=== PATIENT | female | born 1985 | race Caucasian/White ===

== ENCOUNTER 2020-11-09 14:48 | Outpatient (CLI) | payer OTHER, SELFPAY ==
--- NOTE | ~2020-11-09 | US_ITS ---
EXAMINATION: US thyroid DATE: 11/09/2020 15:06 INDICATION: Goiter. TECHNIQUE: Multiple ultrasound images of the thyroid were obtained. COMPARISON: None. FINDINGS: The right thyroid lobe measures 5.1 x 1.8 x 1.4 cm. The left thyroid lobe measures 4.4 x 1.4 x 1.5 c m. Thyroid vascularity is normal. There is a 3 mm nodule in right thyroid lobe. There is a 4 mm nodul e in left thyroid lobe. IMPRESSION: 1. Small thyroid nodules, likely not clinically significant. No follow-up is needed. Reviewed, dictated and finalized at location A. IMPRESSION: 1. Small thyroid nodules, likely not clinically significant. No follow-up is ne eded.
== END 2020-11-09 14:49 ==
PROVIDERS: PCP Nurse Practitioner Family; Visit Provider Nurse Practitioner Family
DX: E04.9 Nontoxic goiter, unspecified (principal)
CPT/HCPCS: 76536

== ENCOUNTER 2021-02-08 14:02 | Outpatient (CLI) | payer OTHER, SELFPAY ==
--- NOTE | ~2021-02-08 | US_ITS ---
EXAMINATION: US pelvic complete w TV EXAM DATE: 02/08/2021 14:38 INDICATION: Pelvic and perineal pain 6-7 months. TECHNIQUE: Pelvic transabdominal and transvaginal sonogram was performed. There are multiple graysca le and Doppler images available for interpretation. Comparison is made to prior examination from 04/28. FINDINGS: Uterus measures 9.0 x 2.9 x 3.6 cm, and is morphologically normal. Endometrial stripe katherine sures 7 mm, within normal limits. There is a nabothian cyst. There is no free pelvic fluid. Right adnexa: The ovary measures 2.9 x 2.2 x 3.0 cm and is morphologically normal. Ovarian vascular f low confirmed. Left adnexa: The ovary measures 2.4 x 1.1 x 1.4 cm and is morphologically normal. Ovarian vascular fl ow confirmed. IMPRESSION: 1. Unremarkable pelvic ultrasound exam. Reviewed, dictated and finalized at location A.
== END 2021-02-08 14:03 ==
PROVIDERS: PCP Nurse Practitioner Family; Visit Provider Nurse Practitioner
DX: R10.2 Pelvic and perineal pain (principal)
CPT/HCPCS: 76830; 76856

== ENCOUNTER 2021-02-13 12:15 | Emergency (ER) | payer OTHER, SELFPAY ==
[2021-02-13 12:25] VITALS: BP 130/91; PULSE 74; RESP 20; TEMP 36.1; O2SAT 98
--- NOTE | 2021-02-13 12:25 | ED.GENADULT ---
HPI - General Adult General Chief complaint: Upper Respiratory Infection Stated complaint: Sore throat,headache Time Seen by Provider: 02/13/21 12:26 Source: patient and RN notes reviewed Mode of arrival: ambulatory Limitations: no limitations History of Present Illness HPI narrative: 35-year-old female presents with complaints of upper respiratory infection, sneezing, some facial congestion, facial pressure, ear pressure, and intermittent headache (not the worst of her life) for the past 3 days. Milena reports awakening this morning with a sore throat. ?Neti pot for the last 3 nights and Ibuprofen, last took 09:00 AM without relief. ?Milena feels as if LT side of face is swollen. ?Intermittent cough. ?Nasal congestion and rhinorrhea. ?No high fevers, drooling, neck or throat swelling. ?No voice change. ?No nausea, vomiting, or abdominal pain. ?Tolerating liquids well. ?Denies chills, dyspnea, difficulty swallowing, foreign body sensation, and rash. No chest pain or shortness of breath. ?Remains active. ?The patient reports she has not been diagnosed with COVID-19. ?The patient reports she received 2 [employer] COVID-19 vaccines. ?The patient reports she is not waiting for the results of a COVID-19 lab test. ?The patient reports she does not have weakness, fatigue, or myalgia. ?The patient reports she does not have a worsening cough or shortness of breath. ?The patient reports she does not have any loss of taste and diarrhea. ?Denies recent traveling. ?Denies concerns for COVID-19 or exposures. ?At this time, the patient is not suspected of having COVID-19. Some parts of this dictation were generated by voice recognition software and may contain typographical and/or grammatical inaccuracies. Related Data Allergies Allergy/AdvReac Type Severity Reaction Status Date / Time aspirin Allergy Severe Anaphylactic Verified 02/13/21 12:36 Shock Sulfa (Sulfonamide Allergy Severe Anaphylactic Verified 02/13/21 12:36 Antibiotics) Shock sulfamethoxazole Allergy Severe Anaphylactic Verified 02/13/21 12:36 Shock Review of Systems Review of Systems: Narrative: CONSTITUTIONAL: Denies fever, chills, sweats. EYES: Denies visual changes, redness, discharge. ENT: Complains of sore throat, congestion, rhinorrhea, bilateral otalgia. CARDIOVASCULAR: Denies chest pain, palpitations, edema. RESPIRATORY: Denies dyspnea, wheezing. Complaints of intermittent cough. GASTROINTESTINAL: Denies abdominal pain, nausea, vomiting, diarrhea. GENITOURINARY: Denies dysuria, hematuria, abnormal discharge. SKIN: Denies rash or itching. MUSCULOSKELETAL: Denies acute back pain, joint pain, or myalgia. NEUROLOGIC: Denies numbness or focal weakness. Complaints of TABOR. PSYCHIATRIC: Denies anxiety or depression. All systems reviewed & are unremarkable except as noted in HPI and below. [facility] Past Medical History Medical History (Updated 02/13/21 @ 13:00 by DANETTE Gonzalez) Asthma Childhood delivery delivered Ex-smoker for less than 1 year Obese Surgical History Surgical History (Updated 02/13/21 @ 12:56 by DANETTE Gonzalez) H/O section X3 H/O LEEP History of cholecystectomy History of endometrial ablation History of tonsillectomy History of tubal ligation Family History Family History Mother Hypertension Family history of elevated blood lipids Family history of diabetes mellitus in first degree relative Family history of pulmonary embolism Grandparent Family history of malignant neoplasm of breast, Onset Age: 92 Family history of coronary artery disease, Onset Age: 57 Diabetes mellitus Social History Social History (Updated 02/13/21 @ 12:57 by DANETTE Gonzalez) Smoking status: Former smoker Tobacco type: cigarettes and e-cigarettes/vaping Second hand tobacco smoke exposure: Yes (Spouse) Alcohol intake: current Substance use: never
[2021-02-13 12:53] VITALS: BP 137/89; PULSE 69
[2021-02-13 12:54] VITALS: BP 128/90; BP 132/98; PULSE 69; PULSE 79
== END 2021-02-13 13:08 | disposition home or self-care (01) ==
PROVIDERS: Emergency Provider Nurse Practitioner Family; PCP Nurse Practitioner Family
DX: J01.90 Acute sinusitis, unspecified (principal); H92.01 Otalgia, right ear; Z87.891 Personal history of nicotine dependence; E66.9 Obesity, unspecified; Z68.41 Body mass index [BMI] 40.0-44.9, adult
CPT/HCPCS: 99213; G0463

== ENCOUNTER 2021-03-07 10:10 | Emergency (ER) | payer OTHER, SELFPAY ==
--- NOTE | ~2021-03-07 | CT_ITS ---
EXAMINATION: CT soft tissue neck w con DATE: 03/07/2021 13:57 INDICATION: Right submandibular swelling TECHNIQUE: Computed tomography (CT) of the neck was performed with 75 mL Omnipaque-350 intravenous co ntrast. The dose-length product was 413.12 mGy-cm. Automated exposure control and iterative reconstru ction technique were employed. COMPARISON: No prior studies for comparison. FINDINGS: Lung apices are normal. Thyroid gland is normal. No significant vascular abnormality. Intra cranial contents are normal. Mucosal and parapharyngeal spaces are symmetric. There is asymmetric enl argement of the right parotid gland with heterogeneous enhancement and mild surrounding fatty infiltr ation, particularly inferiorly. Mildly enlarged internal jugular lymph nodes are likely reactive. The paranasal sinuses and mastoids are pneumatized. Study limited by motion. IMPRESSION: 1. Mild asymmetric enlargement of the right parotid gland with heterogeneous enhancement, consistent with mild sialadenitis. Reviewed, dictated and finalized at location A. IMPRESSION: 1. Mild asymmetric enlargement of the right parotid gland with heterogeneous en hancement, consistent with mild sialadenitis.
[2021-03-07 11:33] VITALS: BP 179/99; PULSE 86; RESP 14; TEMP 36.2; O2SAT 100
--- NOTE | 2021-03-07 13:00 | ED.GENADULT ---
HPI - General Adult General Chief complaint: Unspecified Stated complaint: Hard mass on right side of face Time Seen by Provider: 03/07/21 12:50 Source: patient Mode of arrival: ambulatory Limitations: no limitations History of Present Illness HPI narrative: This is a 35 year old female that presents to the ER for right sided facial swelling noted this morning. Reports pain and swelling to an area just below the right jaw. Denies fever, sore throat, dentalgia or otalgia. Related Data Allergies Allergy/AdvReac Type Severity Reaction Status Date / Time aspirin Allergy Severe Anaphylactic Verified 03/07/21 11:42 Shock Sulfa (Sulfonamide Allergy Severe Anaphylactic Verified 03/07/21 11:42 Antibiotics) Shock sulfamethoxazole Allergy Severe Anaphylactic Verified 03/07/21 11:42 Shock Review of Systems Review of Systems: CONSTITUTIONAL: Denies fever ENT: Denies sore throat, or otalgia. All systems reviewed & are unremarkable except as noted in HPI and below PMFSH Past Medical History Medical History (Updated 03/07/21 @ 14:55 by Analisa Jonas PA-C) Asthma Childhood delivery delivered Ex-smoker for less than 1 year Obese Surgical History Surgical History (Updated 02/13/21 @ 12:56 by DANETTE Gonzalez) H/O section X3 H/O LEEP History of cholecystectomy History of endometrial ablation History of tonsillectomy History of tubal ligation Family History Family History Mother Hypertension Family history of elevated blood lipids Family history of diabetes mellitus in first degree relative Family history of pulmonary embolism Grandparent Family history of malignant neoplasm of breast, Onset Age: 92 Family history of coronary artery disease, Onset Age: 57 Diabetes mellitus Social History Social History (Updated 02/13/21 @ 12:57 by DANETTE Gonzalez) Smoking status: Former smoker Tobacco type: cigarettes and e-cigarettes/vaping Second hand tobacco smoke exposure: Yes (Spouse) Alcohol intake: current Substance use: never Substance use type: does not use Gender identity (if verbalized by the patient): Female Exam Narrative: GENERAL: Well-appearing, well-nourished, and in no acute distress. HEAD: Normocephalic, atraumatic. EYES: EOMI. ENT: Nares clear, no rhinorrhea or epistaxis. Mucous membranes moist. Oropharynx without tonsillar hypertrophy exudate or other lesions. Bilateral TMs pearly granados non-bulging NECK: Supple. Swelling and pain over the right submandibular region CHEST: Clear to auscultation. No respiratory distress. No wheezes rales or rhonchi HEART: Regular rate and rhythm. No murmur heard. Normal peripheral pulses. EXTREMITIES: Normal range of motion. No edema. SKIN: Warm, dry, no rash. NEURO: No focal deficits. Alert and oriented x3. PSYCH: Normal mood and affect Course Vital Signs Vital signs: Vital Signs Temperature 97.1 F L 03/07/21 11:33 Pulse Rate 86 03/07/21 11:33 Respiratory Rate 14 03/07/21 11:33 Blood Pressure 179/99 H 03/07/21 11:33 Pulse Oximetry 100 03/07/21 11:33 Temperature 97.1 F L 03/07/21 11:33 Pulse Rate 86 03/07/21 11:33 Respiratory Rate 14 03/07/21 11:33 Blood Pressure 179/99 H 03/07/21 11:33 Pulse Oximetry 100 03/07/21 11:33 Medical Decision Making MDM Narrative Medical decision making narrative: Patient presents to the ER for swelling of the right submandibular region. She is afebrile and nontoxic-appearing. CBC and metabolic panel without concerning findings. Inflammatory markers are not elevated. Bedside test is negative. CT soft tissue neck shows mild asymmetric enlargement of the right parotid gland with heterogenous enhancement, consistent with sialadenitis. Patient was instructed on care of this. She is to follow-up with her primary care doctor. She was given warnings to return to the ER Pat
[2021-03-07 13:09] LABS: Basophils Absolute Auto 0.1 K/mm3 (0.0-0.1); Eosinophils Absolute Auto 0.3 K/mm3 (0-0.3); Eosinophils Percent Auto 3.4 % (0-4.4); Hematocrit 45.5 % (37.0-47.0); Hemoglobin 15.3 g/dL (12.0-15.0); Immature Granulocyte Absolute 0.02 K/mm3 (0.00-0.031); Immature Granulocyte Percent A 0.3 % (0-0.5); Lymphocytes Absolute Auto 2.11 K/mm3 (0.9-3.2); Lymphocytes Percent Auto 26.7 % (18.3-44.2); Mean Corpuscular HGB Conc 33.6 g/dl (32-36); Mean Corpuscular Hemoglobin 29.9 pg (26-34); Mean Platelet Volume 10.6 fl (7.4-10.4); Monocytes Absolute Auto 0.4 K/mm3 (0.1-0.6); Monocytes Percent Auto 5.3 % (2.6-8.5); Neutrophils Percent Auto 63.3 % (45.5-73.1); Platelet Count Result 225 k/mm3 (150-375); Red Blood Count 5.11 M/mm3 (4.2-5.4); White Blood Count 7.9 K/mm3 (4.5-10.0)
[2021-03-07 13:19] LABS: Anion Gap 8 mmol/L (8-16); Blood Urea Nitrogen 11 mg/dL (7-17); Calcium 9.3 mg/dL (8.4-10.2); Carbon Dioxide 24 mmol/L (22-30); Chloride 107 mmol/L (98-107); Estimated CRCL calculation 95 ml/min; Estimated Glomerular Filt Rate > 60; Glucose 96 mg/dL (65-110); Potassium 4.2 mmol/L (3.4-5.0); Sodium 139 mmol/L (137-145)
--- NOTE | 2021-03-07 13:32 | PC.NURSE ---
evelio called labBrenda, added on ESR and CRP
[2021-03-07 13:46] LABS: CRP 0.6 mg/dL (<1.0)
[2021-03-07 14:12] LABS: Erythrocyte Sedimentation Rate 14 mm/hr (0-20)
[2021-03-07 15:38] VITALS: BP 141/91; PULSE 67; RESP 16; O2SAT 100
== END 2021-03-07 15:51 | disposition home or self-care (01) ==
PROVIDERS: Physician Assistant; Emergency Provider Emergency Medicine; PCP Nurse Practitioner Family
DX: K11.20 Sialoadenitis, unspecified (principal); J45.909 Unspecified asthma, uncomplicated; Z87.891 Personal history of nicotine dependence; E66.9 Obesity, unspecified; Z68.39 Body mass index [BMI] 39.0-39.9, adult
CPT/HCPCS: 36415; 70491; 80048; 81025; 85025; 85652; 86140; 99284; Q9967

== ENCOUNTER 2024-09-03 08:37 | Outpatient (CLI) | payer OTHER, SELFPAY ==
--- NOTE | ~2024-09-03 | US_ITS ---
EXAMINATION: US thyroid DATE: 09/03/2024 08:58 INDICATION: Unspecified thyroid disorder TECHNIQUE: Multiple ultrasound images of the thyroid were obtained. COMPARISON: None. FINDINGS: The right thyroid lobe measures 5.1 x 1.6 x 1.8 cm. The left thyroid lobe measures 4.8 x 1.5 x 2.0 c m. Couple benign 4 mm anechoic TI RADS 1 cystic nodules in the right thyroid lobe. No solid nodules. There is normal echotexture, echogenicity and vascular flow throughout the thyroid gland. IMPRESSION: 1. A couple unchanged benign 4 mm TI-RADS 1 cystic nodules in the right thyroid lobe. Otherwise [place] l thyroid ultrasound. Reviewed, dictated and finalized at location A. R LAYER TILE IMPRESSION: 1. A couple unchanged benign 4 mm TI-RADS 1 cystic nodules in the right thyroid lobe. Otherwise normal thyroid ultrasound.
== END 2024-09-03 08:38 | disposition home or self-care (01) ==
LOC: MICIMG 08:38
PROVIDERS: PCP Nurse Practitioner; Visit Provider Nurse Practitioner
DX: E04.2 Nontoxic multinodular goiter (principal)
CPT/HCPCS: 76536

== ENCOUNTER 2024-09-03 12:31 | Emergency (ER) | payer OTHER, SELFPAY ==
--- OUTSIDE RECORDS SUMMARY | 2024-09-03 12:33 | XMS_ITS | Clinical Summary ---
Author Organization [facility] Address [address] [place] [address]. [place] [address] [place] [address] Care Team Providers Care Kiln Stacker Name Role Phone Preeti Verduzco NP Primary Care Provider [phone] Allergies Active Allergy Reactions Criticality Noted Date Comments Aspirin Unknown 07/25/2017 Sulfa Antibiotics Anaphylaxis High 07/25/2017 Medications tirzepatide (ZEPBOUND) 2.5 MG/0.5ML injectionIndica tions:Weight Loss Inject 2.5 mg into the skin once a week. Indications : Weight Loss 3 mL 4 Active varenicline, starter pack, (CHANTIX) 0.5 MG X 11 & 1 MG X 42 tabletIndicatio ns:Cigarette smoker Take one 0.5 mg tab by mouth once a day for 3 days, then take one 0.5 mg tab twice a day for 4 days, then take one 1 mg tab twice a day. 53 each 4 Active famotidine (PEPCID) 20 MG tabletIndicatio ns:Facial swelling Take 1 tablet (20 mg total) by mouth 2 (two) times daily. 20 tablet 4 Active predniSONE (DELTASONE) 20 MG tabletIndicatio ns:Facial swelling Take 40mg for three days Take 20mg for three days Take 10mg for three days Then stop. 11 tablet 4 Active buPROPion XL (WELLBUTRIN XL) 150 MG 24 hr tabletIndicatio ns:Anxiety and depression Take 1 tablet (150 mg total) by mouth daily. 90 tablet 1 4 Active hydrOXYzine (ATARAX) 10 MG tabletIndicatio ns:Insomnia, unspecified type,Generalize d anxiety disorder TAKE 1 TABLET(10 MG) BY MOUTH EVERY NIGHT NEEDED FOR ANXIETY OR SLEEP 30 tablet 5 Active hydrOXYzine (ATARAX) 10 MG tabletIndicatio ns:Insomnia, unspecified type,Generalize d anxiety disorder Take 1 tablet (10 mg total) by mouth nightly as needed for Anxiety (and sleep). 30 tablet 4 025 Discontinued Active Problems Problem Noted Date Diagnosed Date Cigarette smoker 09/18/2023 Anxiety and depression 09/18/2023 AB (generalized anxiety disorder) 03/26/2019 Class 2 obesity due to exces s calories without serious comorbidity with body mass index (BMI) of 39.0 to 39.9 in adult 03/26/2019 Moderate episode of recurren t major depressive disorder ([facility]) 03/26/2019 History of HPV infection 03/26/2019 Encounters Date Type Department Care Team Description 09/03/2024 Telephone [facility] Family Medicine - [place] [address] [address] Preeti Verduzco NP Information from Last 3 Months Immunizations Name Administration Dates Next Due Hepatitis B Pediatric 03/09/1999 Influenza (Generic) 04/26/2021 Influenza Adult (Generic) 04/26/2023,04/22/2022, 05/07/2016 Td 03/09/1999 Tdap (Generic) 07/31/2017,03/10/2016,09/23/2014 Family History Medical History Relation Comments Drug Abuse Brother Alcohol Abuse Father COPD Father Drug Abuse Father Diabetes Mother Hypertension Mother Lupus Mother Drug Abuse Sister Stroke Son Relation Status Comments Brother Father Alive Mother Alive Sister Son Social History Tobacco Use Types Packs/Day Years Used Date Smoking Tobacco: Some Days Cigarettes 0.3 15 Passive Smoke Exposure: Current Smokeless Tobacco: Never Tobacco Cessation:Ready to Q uit: No; Counseling Given: Yes Alcohol Use Standard Drinks/Week Comments Yes 10 (1 standard drink = 0.6 oz pu re alcohol) social PHQ-2 Answer Date Recorded Patient Health Questionnaire-2 Score 2 01/16/2024 Comments No Sex and Gender Information Value Date Recorded Sex Assigned at Not on file Legal Sex Female 8:27 PM CDT Gender Identity Not on file Sexual Orientation Not on file Last Filed Vital Signs Vital Sign Reading Time Taken Comments Blood Pressure 136/82 01/16/2024 12:49 PM CDT Pulse 74 01/16/2024 12:49 PM CDT Temperature 36.4 ??C (97.5 ??F) 01/16/2024 12:49 PM C DT Respiratory Rate 17 01/16/2024 12:49 PM CDT Oxygen Saturation 99% 01/16/2024 12:49 PM CDT Inhaled Oxygen Concentration - - Weight 99.5 kg (219 lb 6.4 oz) 01/16/2024 12:49 PM CDT Height 160 cm (5' 3 ) 01/16/2024 12:49 PM CDT Body Mass Index 38.86 01/16/2024 12:49 PM CDT Plan of Treatment Health Maintenance Due Date Last Done Comments Cervical Cancer Screening Pap Smear (Age 30 to 64) Every 3 Years 1984 Pneumococcal Vaccine: Pediatrics (0 to 5 Years) and At-Risk Patients (6 to 64 Years) (1 of 2 - PCV) 1990 Hepatitis B Vaccines (2 of 3 - 3-dose series) 04/06/1999 03/09/1999 Cervical Cancer Screening Pap with HPV Testing (Age 30 to 64) Every 5 Years 2014 Cervical Cancer Screening with HPV 2014 COVID-19 Vaccine ( season) 2024 08/25/2021, 08/17/2020, 07/29/2020 Influenza Adult (#1) 2024 04/26/2023, 04/22/2022, 04/26/2021, Additional history exists Mammogram Screening 2024 PHQ-2 (Physician [place]) 07/31/2024 01/16/2024 Annual Physical 09/18/2024 09/18/2023 DTaP, Tdap and Td Vaccines (5 - Td or Tdap) 07/31/2027 07/31/2017, 03/10/2016, 09/23/2014, Additional history exists Hepatitis C Completed 09/18/2023 HPV Vaccines Aged Out No longer eligi ble based on patient's age to complete this topic Meningococcal B Vaccine Aged Out No l onger eligible based on patient's age to complete this topic Meningococcal Vaccine Aged Out No bairon nicola eligible based on patient's age to complete this topic RSV Immunizations Under 20 Months Aged Out No longer eligible based on patient's age to complete this topic Procedures Procedure Name Priority Date/Time Associated Diagnosis Comments HEPATITIS C ANTIBODY Routine 09/18/2023 12:47 PM HOG OPERATOR Need for hepatitis C screening test from Last 3 Months or Most Recently Relevant to Health Maintenance Results * HEPATITIS C ANTIBODY (09/18/2023 12:47 PM HOG OPERATOR) HEPATITIS C AB NON-REACTI VE NON-REACT JIMMY 09/18/2023 7:10 PM HOG OPERATOR [facility] Comment: ANTIBODIES TO HCV NOT DETECTED. DOES NOT EXCLUDE THE POSSIBILITY OF EXPOSURE TO HCV. 09/18/2023 12:4 7 PM HOG OPERATOR Preeti Verduzco NP LABORATORY Final Res ult [facility] [address] [place] [address], [phone] from Last 3 Months or Most Recently Relevant to Health Maintenance Insurance [employer] Care Teams Kiln Stacker Relationship Specialty Start Date End Date Preeti Verduzco NP [address] [place] [address] PCP - General NURSE PRACTITIONER 03/18/20
--- OUTSIDE RECORDS SUMMARY | 2024-09-03 12:33 | XMS_ITS | Encounter Summary ---
Author Organization [facility] Address [address] [place] [address]. [place] [address] [place] [address] Care Team Providers Care Infant Babysitter Name Role Phone Preeti Verduzco PAINT CREW SUPERVISOR Primary Care Provider [phone] Reason for Visit * Reason Onset Date Comments Information 09/03/2024 Encounter Details Date Type Department Care Team (Late st Contact Info) Description 09/03/2024 Telephone [facility] Family Medicine [facility] [address] [facility] [address] [place] [phone] Preeti Verduzco, PAINT CREW SUPERVISOR [address] [id number] Information Social History Tobacco Use Types Packs/Day Years Used Date Smoking Tobacco: Some Days Cigarettes 0.3 15 Passive Smoke Exposure: Current Smokeless Tobacco: Never Alcohol Use Standard Drinks/Week Comments Yes 10 (1 standard drink = 0.6 oz pu re alcohol) social PHQ-2 Answer Date Recorded Patient Health Questionnaire-2 Score 2 01/16/2024 Comments No Sex and Gender Information Value Date Recorded Sex Assigned at Not on file Legal Sex Female 8:27 PM CDT Gender Identity Not on file Sexual Orientation Not on file documented as of this encounter Progress Notes * Lawrence Gomez - 09/03/2024 10:14 AM CST Pt canceled her appt today she is no longer in network and wanted me to let Preeti know. RPROOFER documented in this encounter Plan of Treatment Not on file documented as of this encounter Visit Diagnoses Not on filedocumented in this encounter Additional Health Concerns Assessment Noted Time PHQ-9 Depression Total Score: 11 01/15/ 024 1:01 PM CDT documented as of this encounter Care Teams Infant Babysitter Relationship Specialty Start Date End Date Preeti Verduzco NP [address] [place] [address] PCP - General NURSE PRACTITIONER 03/18/20 documented as of this encounter
--- OUTSIDE RECORDS SUMMARY | 2024-09-03 12:33 | XMS_ITS | Referral Summary ---
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
--- OUTSIDE RECORDS SUMMARY | 2024-09-03 12:33 | XMS_ITS | Continuity of Care Document ---
Author Organization [facility] Address [address] [place] [address] Phone Care Team Providers Care Tombstone Setter Name Role Phone Unavailable Unavailable Unavailable Advance Directives Directive Yes / No Effective Date File Name No Information Encounters Encounter Description Practice Location Reason(s) For Visit Diagnoses Date Provider Providers Copied on Encounter [facility], [address] [facility], [place], [place], [id number], tel:[phone] [facility] No Information [phone] No Information Referring Provider: DENYS MCKEON, [address] [place] [address],[place], [address]. tel:[phone] Family History Family Member Type Diagnosis Age At Onset No Information Payers Payer name Insurance type Covered green party ID Authoriza titerence(s) [facility] [place] [id number] CI [id number] Social History Type Description Quantity Date Captured Comments Sex Female Smoking Status No Information Chief Complaint And Reason For Visit No Information History Of Present Illness Encounter Date Complaint History Of Prese nt Illness No Information Instructions Date Instruction Additional Infor mation No Information Assessments Type Assessment Date No Information
--- OUTSIDE RECORDS SUMMARY | 2024-09-03 12:33 | XMS_ITS | Clinical Summary ---
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 Gender Identity Not on file Sexual Orientation Not on file Plan of Treatment Health Maintenance Due Date Last Done Comments Breast Cancer Screening-Mammogram 1984 Cervical Cancer Screening 1984 Depression Screening 1984 Hepatitis C Screening 1984 Varicella Vaccines (1 of 2 - 13+ 2-dose series) 1997 Regular Well Visit/Exam 18-64 2002 Covid-19 Vaccine (2023- season) 2024 08/25/2021, 08/17/2020, 07/29/2020 Influenza Vaccine (#1) 2024 3, 04/22/2022, 04/26/2021, Additional history exists DTaP/Tdap/Td Vaccine (4 - Td or Tdap) 07/31/2027 07/31/2017, 03/10/2016, 09/23/2014, Additional history exists HPV Vaccines Aged Out No longer eligi ble based on patient's age to complete this topic Pneumococcal vaccine <65 Aged Out No longer eligible based on patient's age to complete this topic Insurance [employer] Address: [facility] [id number] [place] [phone] Care Teams Cloth Hand Relationship Specialty Start Date End Date Unknown, Notinfile PCP - General 03/18/20
--- OUTSIDE RECORDS SUMMARY | 2024-09-03 12:33 | XMS_ITS | Encounter Summary ---
Author Organization [facility] Address [address] [place] [address]. [place] [address] [place] [address] Care Team Providers Care Key Account Director Name Role Phone Preeti Verduzco NP Primary Care Provider [phone] Encounter Details Date Type Department Care Team (Late st Contact Info) Description 04/09/2024 Newtron Message Enc [facility] Family Medicine - [place] [address] [facility] [address] [place] [phone] Preeti Verduzco NP [address] [place], [place] [phone] Allergic reaction Social History Tobacco Use Types Packs/Day Years [...] on file documented as of this encounter Plan of Treatment Not on file documented as of this encounter Visit Diagnoses Not on filedocumented in this encounter Additional Health Concerns Assessment Noted Time PHQ-9 Depression Total Score: 11 024 1:01 PM CDT documented as of this encounter Care Teams Key Account Director Relationship Specialty Start Date End Date Preeti Verduzco NP [address] [place], [place] [phone] PCP - General NURSE PRACTITIONER 03/18/20 documented as of this encounter
--- OUTSIDE RECORDS SUMMARY | 2024-09-03 12:33 | XMS_ITS | Clinical Summary ---
Author Organization [employer] [address] - [address]22 Address [address] [facility] [address] [place] [address] Phone Care Team Providers Care Bulk System Operator Name Role Phone Harman Carver MD Primary Care Provider [phone] Social History Tobacco Use Types Packs/Day Years Used Date Smoking Tobacco: Never Assessed Comments Unknown Sex and Gender Information Value Date Recorded Sex Assigned at Not on file Legal Sex Female 7:59 AM PATIENT SERVICES TECHNICIAN Gender Identity Not on file Sexual Orientation Not on file Plan of Treatment Health Maintenance Due Date Last Done Comments DTAP/TDAP/TD VACCINES (1 - Tdap) 2003 HEPATITIS B VACCINES (1 of 3 - 19+ 3-dose series) 2003 CERVICAL CANCER SCREENING 2014 INFLUENZA VACCINE (#1) 2024 BREAST CANCER SCREENING 2024 HPV VACCINES Aged Out No longer eligi ble based on patient's age to complete this topic PNEUMOCOCCAL VACCINE 0-64 YEARS Aged Out No longer eligible based on patient's age to complete this topic Insurance [facility] MEDICAID Care Teams Bulk System Operator Relationship Specialty Start Date End Date Harman Carver MD PCP - General Family Practice 09/16/15
--- OUTSIDE RECORDS SUMMARY | 2024-09-03 12:34 | XMS_ITS | Encounter Summary ---
Author Organization [facility] Address [address] [place] [address]. [place] [address] [place] [address] Care Team Providers Care Television News Anchor Name Role Phone Preeti Verduzco NP Primary Care Provider [phone] Encounter Details Date Type Department Care Team (Late st Contact Info) Description 01/16/2024 [employer] Message Enc [facility] Family Medicine - [place] [address] [facility] [address] [place] [address] [id number] Preeti Verduzco NP [address] [place], [place] [id number] Generic chantix Social History Tobacco Use Types Packs/Day Years [...] documented as of this encounter Care Teams Television News Anchor Relationship Specialty Start Date End Date Preeti Verduzco NP [address] [place] [address] PCP - General NURSE PRACTITIONER 03/18/20 documented as of this encounter
--- OUTSIDE RECORDS SUMMARY | 2024-09-03 12:34 | XMS_ITS | Patient Health Summary ---
Author Organization [facility] Address [address] [facility] [place] [address] Care Team Providers Care Neurobiologist Name Role Phone Lynda Garcia MD Primary Care Provider [phone] Note from [facility] [place]non-owned Affiliates and Associated Physician Practices is amultiple site organization consisting of ambulatory clinics and hospital sitesin [place], [place], [place] and [place]. This disclosure is being madepursuant to the Care Everywhere program and may not contain all information available regarding this patient. Last updated 18.[facility] Allergies * Aspirin * Sulfa Drugs Medications * Be aware that medications may not be up to date on this document. Alwaysverify current medications with the patient. * VENTOLIN HFA 108 (90 Base) MCG/ACT inhaler(Started 01/13/2019) INL 2 PFS PO Q 4 TO 6 H PRF SOB * FLUoxetine (PROZAC) 10 MG capsule(Started 03/26/2019) Take 1 capsule by mouth every morning 5 refills remaining * clonazePAM, disintegrating, 0.5 MG(Started 03/26/2019) Take 0.5 tablets by mouth once daily as needed (panic attack) Active Problems Problem Noted Date Diagnosed Date History of HPV infection 03/26/2019 AB (generalized anxiety disorder) 03/26/2019 Class 2 obesity due to exces s calories without serious comorbidity with body mass index (BMI) of 39.0 to 39.9 in adult 03/26/2019 Moderate episode of recurrent major depressive d isorder 03/26/2019 Immunizations * TDAP (7yrs+)(Given 07/31/2017) Social History Tobacco Use Types Packs/Day Years Used Date Smoking Tobacco: Former Cigarettes Smokeless Tobacco: Never Comments:smokes e-cigs Alcohol Use Standard Drinks/Week Comments Yes 0 (1 standard drink = 0.6 oz pur e alcohol) socially Sex and Gender Information Value Date Recorded Sex Assigned at Not on file Gender Identity Not on file Sexual Orientation Not on file Last Filed Vital Signs Vital Sign Reading Time Taken Comments Blood Pressure 120/72 03/26/2019 8:21 AM CDT Pulse 75 03/26/2019 8:21 AM CDT Temperature 36.6 ??C (97.8 ??F) 11/09/2018 8:09 AM CD T Respiratory Rate 18 03/26/2019 8:21 AM CDT Oxygen Saturation 98% 03/26/2019 8:21 AM CDT Inhaled Oxygen Concentration - - Weight 101.5 kg (223 lb 12.8 oz) 03/26/2019 8:21 AM CDT Height 160 cm (5' 3 ) 03/26/2019 8:21 AM CDT Body Mass Index 39.64 03/26/2019 8:21 AM CDT Procedures * STREP A SCREEN - POCT (IP) URGENT CARE(Performed 11/09/2018) Performed for Sore throat * INFLUENZA A+B - POINT OF CARE (AMB)(Performed 10/17/2018) Performed for Upper respiratory tract infection, unspecified type * SKIN TEST PPD - POINT OF CARE(Performed 07/27/2017) Performed for PPD screening test Results * STREP A SCREEN - POCT (IP) URGENT CARE (11/09/2018 8:22 AM CDT) Strep A Rapid POCT Negative Negative [facility] POCT TESTING QC Verified Yes Yes [facility] POC T TESTING Throat ENTIRE THROAT (SURFACE REGION OF NECK) / Unknown 11/09/2018 8:22 AM CDT Deisy Oden APRN-MAINTENANCE WORKER [facility] - POINT OF CARE ORDERABLES [facility] POCT TESTING [address] [phone] * INFLUENZA A+B - POINT OF CARE (AMB) (10/17/2018) Influenza A Antigen Rapid Negative Negative Influenza B Antigen Rapid Negative Negative Influenza Internal Control present NEGATIVE - POSITIVE Influenza Lot Number [id number] Influenza Expiration Date Other NASOPHARYNGEAL SWAB / Unknown 10/17/2018 Laendro Weldon OPTICAL ENGINEERING TECHNICIAN-MAINTENANCE WORKER [facility] - POINT OF CARE ORDERABLES * SKIN TEST PPD - POINT OF CARE (07/27/2017) PPD 0 mm Comment:0 mm induration, neg ative reading, tb form signed and scanned and scanned into chart Other MISCELLANEOUS SAMPLE S / Unknown 07/27/2017 Tina Jacob OPTICAL ENGINEERING TECHNICIAN-MAINTENANCE WORKER [facility] - POINT OF CA RE ORDERABLES Care Teams Neurobiologist Relationship Specialty Start Date End Date Lynda Garcia MD PCP - General Family Medicine 03/26/19
--- OUTSIDE RECORDS SUMMARY | 2024-09-03 12:34 | XMS_ITS | Clinical Summary ---
Author Organization [facility] Address [address] [place] [address] Care Team Providers Care Italian Lecturer Name Role Phone Unavailable Primary Care Provider Unavailabl e Immunizations Immunization Administration Dates Next Due Covid-19, Mrna, Lnp-s, Pf, 30 Mcg/0.3 Ml Dose (P fizer) 08/25/2021 Social History Tobacco Use Types Packs/Day Years Used Date Smoking Tobacco: Never Assessed Comments Unknown Sex and Gender Information Value Date Recorded Sex Assigned at Not on file Legal Sex Female 5:44 PM CDT Gender Identity Not on file Sexual Orientation Not on file Plan of Treatment Health Maintenance Due Date Last Done Comments Hepatitis C Virus (HCV) Screening 1984 Hepatitis B Immunization (2 of 3 - 3-dose series) 04/06/1999 03/09/1999 Pap Smear 2005 Cervical Cancer Screening (CCS) 2014 HPV/Cotest 2014 Influenza Immunization (#1) 2024 05/07/2016, 1 SARS-COV-2 Immunization ( season) 2024 08/25/2021, 08/17/2020, 07/29/2020 Discussion re Starting/Frequency of Mammograms 2024 Respiratory Syncytial Virus (RSV) Immunization (Adult) (1 - 1-dose 75+ series) 2059 DTaP/Tdap/Td Immunization Discontinued 2017, 03/10/2016, 09/23/2014, Additional history exists TdaP Immunization Completed 07/31/2017, , 09/23/2014 Meningococcal Immunization (ACWY) Aged Out No longer eligible based on patient's age to complete this topic Pneumococcal Immunization Combined Aged Out No longer eligible based on patient's age to complete this topic Rotavirus Immunization Aged Out No lo nger eligible based on patient's age to complete this topic
--- OUTSIDE RECORDS SUMMARY | 2024-09-03 12:34 | XMS_ITS | Continuity of Care Document ---
Author Organization [facility] Address [address] [place] [address] [place] [address] Phone Care Team Providers Care Senior Applications Developer Name Role Phone Harman Carver MD Unavailable Unavailable Allergies, Adverse Reactions, Alerts Substance Reaction Status Criticality Sulfa (Sulfonamide Antibiotics) Active No Information aspirin Active No Information Medications Medication Instructions Dosage Effective Dates (start - stop) Status Comments Neurontin 100 mg capsule take 1 Capsule by oral route 3 times every day 100 MG - Active avoid driving or operate machines Xanax 0.5 mg tablet take 1 tablet by oral route every 4 - 6 hours as needed 0.5 MG - Active avoid driving or operate machines Paxil 20 mg tablet take 2 tablet by oral route every day 40 MG - Active Procedures Procedure Date PREV VISIT, EST, AGE 18-39 OFFICE/OUTPATIENT VISIT, EST PREV VISIT, EST, AGE 18-39 OFFICE/OUTPATIENT VISIT, EST OFFICE/OUTPATIENT VISIT, EST OFFICE/OUTPATIENT VISIT, EST OFFICE/OUTPATIENT VISIT, EST OFFICE/OUTPATIENT VISIT, EST OFFICE/OUTPATIENT VISIT, EST OFFICE/OUTPATIENT VISIT, EST OFFICE/OUTPATIENT VISIT, EST PREV VISIT, NEW, AGE 18-39 Advance Directives Directive Yes / No Effective Date File Name No Information Encounters Encounter Description Practice Location Reason(s) For Visit Diagnoses Date Provider Providers Copied on Encounter [facility], [employer] [facility] [place], [id number], [place] tel:[phone] [facility] No Information 7 Mehul Hammer. [address], [place], [place], [address] , [place]. [phone] PREV VISIT, EST, AGE 18-39 [facility], [address], [place], [place], [address], [place] tel:[phone] [facility] PHysical (chief complaint) Encounter for general adult medical exam w abnormal findingsParesthe brittany of skinGeneralized anxiety disorderFatigue 7 Mehul Hammer. [address], [place], [place], [address] , [place]. [phone] Referring Provider: [address], [place], [place], [address]. tel:[phone] PREV VISIT, EST, AGE 18-39 [facility], [address], [place], [place], [address], [place] tel:[phone] [facility] Physical (chief complaint) Encntr for general adult medical exam w/o abnormal findings 6 Mehul Hammer. [address], [place], [place], [address] , [place]. [phone] Referring Provider: Larry [address], [place], [place], [address]. tel:[phone] OFFICE/OUTPA TIENT VISIT, EST [facility], [address], [place], [place], [address], [place] tel:[phone] [facility] numbness1 (chief complaint)Anx iety1 (chief complaint)fat igue1 (chief complaint) FatigueParesthes ia of skinGeneralized anxiety disorder 0- 5 Mehul Hammer. [address], [place], [place], [address] , [place]. [phone] Referring Provider: Larry [address], [place], [place], [address]. tel:[phone] OFFICE/OUTPA TIENT VISIT, [facility], [address], [place], [place], [address], [place] tel:[phone] [facility] anxieyt (chief complaint)rosendo ght loss (chief complaint) Dietary surveillance and counselingLoss of weightGeneralize d anxiety disorder 5 Mehul Hammer. [address], [place], [place], [address] , [place]. tel:[phone] Referring Provider: Harman Carver, [address], [place], [place], [address]. tel:[phone] OFFICE/OUTPA TIENT VISIT, [facility], [address], [place], [place], [address], [place] tel:[phone] [facility] obesity (chief complaint)tob acco (chief complaint)Anx iety (chief complaint) Dietary surveillance and counselingGenera lized anxiety disorderTobacco abuseBody Mass Index 34.0-34.9, adult 5 Mehul Hammer. [address], [place], [place], [address] , [place]. tel:[phone] Referring Provider: [address], [place], [place], [address]. tel:[phone] OFFICE/OUTPA TIENT VISIT, [facility], [address], [place], [place], [address], [place] tel:[phone] [facility] anxiety (chief complaint)fin nicola numbness (chief complaint) Dietary surveillance and counselingGenera lized anxiety disorderDisturba nce of skin sensationCarpal Tunnel SyndromeBody Mass Index 34.0-34.9, adult 5 Mehul Hammer. [address], [place], [place], [address] , [place]. tel:[phone] Referring Provider: Larry Andrade [address], [place], [place], [address]. tel:[phone] OFFICE/OUTPA TIENT VISIT, [facility], [address], [place], [place], [address], [place] tel:[phone] [facility] obesity (chief complaint)diz ziness (chief complaint)anx iety (chief complaint) Dietary surveillance and counselingGenera lized anxiety disorderDizzines sBody Mass Index 34.0-34.9, adultSedative, hypnotic or anxiolytic dependence, unspecified 5 Mehul Hammer. [address], [place], [place], [address] , [place]. tel:[phone] Referring Provider: Harman Carver, [address], [place], [place], [address]. tel:[phone] OFFICE/OUTPA TIENT VISIT, [facility], [address], [place], [place], [address], [place] tel:[phone] [facility] anxiety (chief complaint)Obe sity (chief complaint)wri st pain (chief complaint) Dietary surveillance and counselingDepres sionPain in joint involving forearmObesity 5 Mehul Hammer. [address], [place], [place], [address] , [place]. tel:[phone] Referring Provider: Harman Carver, [address], [place], [place], [address]. tel:[phone] OFFICE/OUTPA TIENT VISIT, [facility], [address], [place], [place], [address], [place] tel:[phone] [facility] immunization (chief complaint)TB screening (chief complaint) HypothyroidismDi etary surveillance and counselingScreen ing examination for rubellaScreening examination for pulmonary tuberculosis 5 Mehul Hammer. [address], [place], [place], [address] , [place]. tel:[phone] Referring Provider: Larry And[address], [place], [place], [address]. tel:[phone] OFFICE/OUTPA TIENT VISIT, [facility], [address], [place], [place], [address], [place] tel:[phone] [facility] anxiety (chief complaint)hyp othyroidism (chief complaint)TG (chief complaint) Dietary surveillance and counselingHypoth yroidismOther and unspecified hyperlipidemiaGe neralized anxiety disorder 5 Mehul Hammer. [address] [place], [place], [address] , . tel:[phone] Referring Provider: Harman Carver, [address] [place], [place], [address]. tel:[phone] PREV VISIT, NEW, AGE 18-39 [facility], [address] [place], [address], tel:[phone] [facility] Physical (chief complaint) Dietary surveillance and counselingRoutin e Medical ExamRoutine Medical Exam 5 Mehul Hammer. [address] [place], [place], [address] , [place]. tel:[phone] Family History Family Member Type Diagnosis Age At Onset Sister Problem (finding) heroin Mother Problem (finding) Hypertension Father Problem (finding) COPD Sister Problem (finding) Alive and well Mother Problem (finding) hypothyroidism Mother Problem (finding) Diabetes mellitus Payers Payer name Insurance type Covered green party ID Authoriza tion(s) No Information Social History Type Description Quantity Date Captured Comments Sex Female Smoking Status No Information Chief Complaint And Reason For Visit No Information Plan Of Treatment Date Type Action Status Goal Special diet education compl eted Goal Special diet education compl eted Goal Tobacco cessation counseling completed Goal Tobacco cessation counseling completed Goal Tobacco cessation counseling completed Goal Tobacco cessation counseling completed Goal Tobacco cessation counseling completed Goal Tobacco cessation counseling completed Referral Ordered: Plastic Surgery (related to Encntr for general adult medical exam w/o abnormal findings) ordered Referral Ordered: Referrals: Plastic Surgery. Evaluate and treat ordered Referral Ordered: Neurology (related to Paresthesia of skin) ordered Referral Ordered: Referrals: Neurology. Evaluate and treat ordered Referral Ordered: HAND XRAY, TWO VIEW Right hand ordered History Of Present Illness Encounter Date Complaint History Of Prese nt Illness PHysical Pt needs annual physical. pt has chronic anxiety and depression. pt has frequent panic attacks. Pt states that she worries about everything. Pt is taking wellbutrin and paxil but not working. Pt does not like wellbutrin. Pt states that ativan makes her too drowsy and is not helping her panic attacks. . Pt states that she has been having right shoulder and left hip pain for 4 months. Pt denies any injury. Pt feels dullache all the time. Pt also feels some type of nerve pinching feeling all over body for sevearl years. Pt denies any myalgia, Pt feels fatigue all the time. Pt statse that she sleeps ok. Pt does not snore Pt denies waking up feeling tired. Pt was diagnosed with fibromyalgia in the past and she used to take lyrica. Pt denies any other complaints Physical Pt needs annual physical. Pt has left carpal tunnel syndome and left hand numnbess. Pt is off all meds since she is . pt currently is 11 week . Pt feels fatigue and also morning nausea Pt is seeing GENERAL ACCOUNTING MANAGER now. Pt states that she is doing ok currently in her mood despite off all meds. Pt denies any other complaints. No vaginal bleeding numbness1 Pt c/o left fing er numnbess for 3 months. Pt denies any weakness Pt denies any burning. Pt also c/o intermittent pinching type of pain around both leg for one year. Pt also has chronic low back pain. Pt injuried her low back 3 years ago and MRI showed mild degenerative disease. Pt states that her leg pain is pinching and is radomly from different part of her leg. Pt has some sciatica symptoms but not constant. Pt denies any loss of bowel or bladder control. Pt states that her pinching type of pain around her legs are different than sciatica. Pt denies any leg numnbess. Pt denies any calf pain. Pt denies any recent travel or bedrest fatigue1 Pt feels very fa tigue for one year. Pt states that she does not snore and she does not have difficulty with breathing at night. Pt states that she feels like her leg keeps moving and she canot have a good night sleep. Pt attributes her fatigue to poor sleep due to leg movement at night Anxiety1 Pt has chronic a nxiety and depression. Pt takes paxil and ativan. Pt denies any suicidal thought Pt stopped lamictal on her own and doing ok in terms of her mood. Pt denies any crying spells. Pt denies any feeling or hopelessnes. Pt feels that ativan is slightly too strong anxieyt Pt has chronic a nxiety and depression. Pt has bipolar. Pt states that she is only taking paxil 20 mg daily. Pt takes ativan PRn and also lamcital and doing ok. Pt denies any suicidasl thought weight loss Pertinent negati ves include cold intolerance, constipation, decreased appetite, diarrhea, hair loss, heat intolerance, irregular heartbeat/palpitations, polyuria, vision changes and vomiting. Additional information: Pt is taking phentermine. Pt lost 7 pounds. Pt denies any chest pain or headche. Pt feels more energy since taking phentermine. obesity Additional infor mation: Pt is obese. Pt has not been able to lose any weight. Pt supposes to try bariatric surgery but she changed her mind. Pt wants to try diet and exercise and meds first. tobacco Pt smokes about 1/2 ppd. Pt does not have any plan to quit smoking now Anxiety Additional infor mation: Pt has chronic anxiety and depression and mood swings. Pt denies any suicidal thought. Pt takes paxil, lamictal and ativan. Pt doing ok. Instructions Date Instruction Additional Infor mation Prescribed Diet Educ ation/Lifestyle Education Regarding Diet Related to Dietary Surveillance and Counseling Prescribed Activity and Exercise Education Related to Dietary Surveillance and Counseling Prescribed Diet Educ ation/Lifestyle Education Regarding Diet Related to Dietary Surveillance and Counseling Prescribed Activity and Exercise Education Related to Dietary Surveillance and Counseling Prescribed Activity and Exercise Education Related to Dietary Surveillance and Counseling Prescribed Diet Educ ation/Lifestyle Education Regarding Diet Related to Dietary Surveillance and Counseling Prescribed Activity and Exercise Education Related to Dietary Surveillance and Counseling Prescribed Diet Educ ation/Lifestyle Education Regarding Diet Related to Dietary Surveillance and Counseling Special diet education Related t o Dietary surveillance and counseling Prescribed activity/ exercise education Related to Dietary surveillance and counseling Special diet education Related t o Dietary surveillance and counseling Prescribed activity/ exercise education Related to Dietary surveillance and counseling Physical activity counseling Rel ated to Dietary surveillance counseling Decrease caloric intake Related to Dietary surveillance counseling Decrease caloric intake Related to Dietary surveillance counseling Physical activity counseling Rel ated to Dietary surveillance counseling Decrease caloric intake Related to Dietary surveillance counseling Physical activity counseling Rel ated to Dietary surveillance counseling Decrease caloric intake Related to Dietary surveillance counseling Physical activity counseling Rel ated to Dietary surveillance counseling Decrease caloric intake Related to Dietary surveillance counseling Physical activity counseling Rel ated to Dietary surveillance counseling Decrease caloric intake Related to Dietary surveillance counseling Physical activity counseling Rel ated to Dietary surveillance counseling Assessments Type Assessment Date No Information
--- OUTSIDE RECORDS SUMMARY | 2024-09-03 12:34 | XMS_ITS | Encounter Summary ---
Author Organization [facility] Address [address] [place] [address]. [place] [address] [place] [address] Care Team Providers Care M48/M60 Tank Driver Name Role Phone Preeti Verduzco NP Primary Care Provider [phone] Encounter Details Date Type Department Care Team (Late st Contact Info) Description 02/11/[address] 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
--- OUTSIDE RECORDS SUMMARY | 2024-09-03 12:34 | XMS_ITS | Referral Summary ---
Author Organization [facility] Address [address] [place] [address] Care Team Providers Care Escrow Processor Name Role Phone Lynda Garcia MD Primary Care Provider [phone] Source Comments [facility],non-owned Affiliates and Associated Physician Practices is amultiple site organization consisting of ambulatory clinics and hospital sitesin [place], [place], [place] and [place]. This disclosure is being madepursuant to the Care Everywhere program and may not contain all information available regarding this patient. Last updated 18.[employer] [facility] Allergies Active Allergy Reactions Criticality Noted Date Comments Aspirin 07/25/2017 Sulfa Drugs 07/25/2017 Medications * Be aware that medications may not be up to date on this document. Alwaysverify current medications with the patient. Medication Sig Dispensed Refills Start Date End Date Status VENTOLIN HFA 108 (90 Base) MCG/ACT inhaler INL 2 PFS PO Q 4 TO 6 H PRF SOB 0 01/13/2019 Active FLUoxetine (PROZAC) 10 MG capsuleIndications:G AD (generalized anxiety disorder),Moderate episode of recurrent major depressive disorder (HCC) Take 1 capsule by mouth every morning 30 capsule 5 03/26/2019 Active clonazePAM, disintegrating, 0.5 MGIndications:AB (generalized anxiety disorder) Take 0.5 tablets by mouth once daily as needed (panic attack) 30 tablet 03/26/2019 Active Active Problems Problem Noted Date Diagnosed Date History of HPV infection 03/26/2019 AB (generalized anxiety disorder) 03/26/2019 Class 2 obesity due to exces s calories without serious comorbidity with body mass index (BMI) of 39.0 to 39.9 in adult 03/26/2019 Moderate episode of recurrent major depressive d isorder 03/26/2019 Immunizations Name Administration Dates Next Due TDAP (7yrs+) 07/31/2017 Social History Tobacco Use Types Packs/Day Years [...] Mass Index 39.64 03/26/2019 8:21 AM CDT Plan of Treatment Not on file Administered Medications Care Teams Escrow Processor Relationship Specialty Start Date End Date Lynda Garcia MD PCP - General Family Medicine 03/26/19
--- OUTSIDE RECORDS SUMMARY | 2024-09-03 12:34 | XMS_ITS | Encounter Summary ---
Author Organization [facility] Address [address] [place] [address]. [place] [address] [place] [address] Care Team Providers Care Machine Wood Sander Name Role Phone Preeti Verduzco NP Primary Care Provider [phone] Encounter Details Date Type Department Care Team (Late st Contact Info) Description 09/20/[email or web address] [facility] Family Medicine [facility] [address] [place] [address] [facility] Provider Medication Social History Tobacco Use Types Packs/Day Years Used Date Smoking Tobacco: Some Days Cigarettes 0.3 15 Passive Smoke Exposure: Current Smokeless Tobacco: Never Alcohol Use Standard Drinks/Week Comments Yes 10 (1 standard drink = 0.6 oz pu re alcohol) PHQ-2 Answer Date Recorded Patient Health Questionnaire-2 Score 3 09/18/2023 Comments No Sex and Gender Information Value [...] Assessment Noted Time PHQ-9 Depression Total Score: 12 024 10:14 AM DIRECTOR DIGITAL CATALOGUE documented as of this encounter Care Teams Machine Wood Sander Relationship Specialty Start Date End Date Preeti Verduzco NP [address] [place] [address] PCP - General NURSE PRACTITIONER 03/18/20 documented as of this encounter
--- OUTSIDE RECORDS SUMMARY | 2024-09-03 12:34 | XMS_ITS | Clinical Summary ---
Author Organization [facility] [employer] Address [address] [place] [address] Care Team Providers Care Oven Equipment Repairer Name Role Phone Lynda Garcia MD Primary Care Provider [phone] Source Comments [facility] [employer],non-owned Affiliates and Associated Physician Practices is amultiple site organization consisting of ambulatory clinics and hospital sitesin [place], [place], [place] and [place]. This disclosure is being madepursuant to the Care Everywhere program and may not contain all information available regarding this patient. Last updated 18.[employer] Allergies Active Allergy Reactions Criticality Noted Date [...] Administration Dates Next Due TDAP (7yrs+) 07/31/2017 Family History Medical History Relation Name Comments Diabetes - Type 2 Mother Hypertension Mother Lupus Mother Relation Name Status Comments Mother Social History Tobacco Use Types Packs/Day Years [...] 03/26/2019 8:21 AM CDT Plan of Treatment Health Maintenance Due Date Last Done Comments LIPID TESTING 1984 MAMMOGRAM 1984 HIV SCREENING 1999 HEPATITIS C SCREENING 06/03/2002 HEPATITIS B VACCINE (1 of 3 - 19+ 3-dose series) 2003 COVID-19 VACCINE (2023-2 5 season) 2024 INFLUENZA VACCINE (#1) 2024 DEPRESSION SCREENING 07/31/2024 DTAP/TDAP/TD VACCINES (2 - T d or Tdap) 07/31/2027 07/31/2017 ZOSTER VACCINE (1 of 2) 2034 HIB VACCINE Aged Out No longer eligi ble based on patient's age to complete this topic HPV VACCINE Aged Out No longer eligi ble based on patient's age to complete this topic MENINGOCOCCAL (Group B) VACCINE Aged Out No longer eligible based on patient's age to complete this topic MENINGOCOCCAL VACCINE Aged Out No bairon nicola eligible based on patient's age to complete this topic PNEUMOCOCCAL VACCINE Aged Out No long er eligible based on patient's age to complete this topic Care Teams Oven Equipment Repairer Relationship Specialty Start Date End Date Lynda Garcia MD PCP - General Family Medicine 03/26/19
--- OUTSIDE RECORDS SUMMARY | 2024-09-03 12:37 | XMS_ITS | Data Portability ---
Author Organization [facility] [employer], Main Office Address [address] [place] [address] Assessment No assessment recorded. Plan of Treatment Reminders Order Date Submit Date Provider Last Modified By Organization Details Last Modified Time Details Appointments None recorded. Lab lipid panel, serum [address] (Lab), [address] [place], [address], 3 08:14:22 TSH, serum or plasma [address] (Lab), [address] [place], [address], 3 08:14:21 CMP, serum or plasma [address] (Lab), [address] [place], [address], 3 08:14:21 glycohemogl obin, total, blood [address] (Lab), [address] [place], [address], 3 08:14:21 CBC w/ auto diff [address] (Lab), [address] [place], [address], 3 08:14:21 Referral None recorded. Procedures None recorded. Surgeries None recorded. Imaging None recorded. Medication Orders escitalopra m 10 mg tablet 2022 023 [id number], [address] [facility], [place], [place], [id number], 14:54:03 Patient TargetsNo targets recorded. Patient Instructions Encounter Date Encounter Id Patient Instructions Last Modified By Organization Details Last Modified Time 11/08/2022 [id number] INFLUENZA VACCIN E TD/TDAP MAMMOGRAM Recommended today, but patient declined Ordered N o screening indicated at this time/ no family history CERVICAL SCREENING/PELVIC EXAMINATION COLORECTAL SCREENING DEPRESSION SCREENING BMI Overweight Appropr iate Underweight O besity continue your current weight loss efforts try to lose 5% of your body weight try to lose 10% of your body weight try to lose 15% of your body weight NUTRITION Heart Healthy Diet Recommendatio n of a 1500 caloric intake for weight loss is advised PHYSICAL ACTIVITY Need more activity Recommendation of 10-20 minutes of activity that causes mild breathlessness daily Recommendati on of 30 minutes of daily activity VISION ALCOHOL USE No alcohol use Occasional/Soc ial Use TOBACCO USE SEXUALLY ACTIVE GLUCOSE SCREENING Ordered LIPID SCREENING Ordered Not available 11/08/2022 14:44:08 FU in 1 year for wellness after 11/10/23. Not available 11/08/2022 14:45:35 Reason for Referral None Reported. Results Created Date Observation Date Name Description Value Unit Range Abnormal Flag Note LastModifiedBy Organization Detail LastModifiedTime 11/06/1911/09/2020 TSH, serum or plasm a TSH w/reflex to FT4 0.97 mIU/L normal Refer ence Range > or = 20 Years 0.40- 4.50 Pregn sonny Range s First trime ster 0.26- 2.66 Secon d trime ster 0.55- 2.73 Third trime ster 0.43- 2.91 Not Available [facility] [address], [place], [address], 11/09/2020 14:29:51 11/06/19 21 11/09/2020 rf (rheu matoi d facto r), serum rheumatoid factor <14 IU/mL <14 normal Not Available [address] [address] [place], [address], 11/09/2020 14:29:51 11/06/19 21 11/09/2020 ARMIDA (anti nucle ar antib odies ) scree n, ifa, serum ARMIDA screen, ifa negati ve negati ve normal ARMIDA IFA is a first line scree n for detec ting the prese nce of up to appro ximat tommy 150 autoa ntibo dies in vario us autoi mmune disea ses. A negat marta ARMIDA IFA resul t sugge sts an ARMIDA-a ssoci ated autoi mmune disea se is not prese nt at this time, but is not defin itive . If there is high clini kristen suspi cion for Sjogr en's syndr ome, testi ng for anti- SS-A/ Ro antib olaf shoul d be consi dered . Anti- Bernadette-1 antib olaf shoul d be consi dered for clini magali suspe cted infla mmato ry myopa maria fernanda . AC-0: Negat marta Inter natio nal Conse nsus on ARMIDA Patte rns (http s://d oi.or g/10. 1515/ ccl- 2017- 0052) For addit ional infor jay carlisle e refer to http: //[facility].Que stDia gnost ics.c om/fa q/FAQ 177 (This link is being provi ded for infor mena roblero/ educa karen l purpo ses only. ) Not Available [address] , [place], [address], 11/09/2020 14:29:51 11/06/19 21 11/09/2020 CBC w/ auto diff white blood cell count 7.0 thous and/u L 3.8-10 .8 normal Not Available [facility] [address] [address] [place], [address], 11/09/2020 14:29:50 11/06/19 21 11/09/2020 CBC w/ auto diff red blood cell count 4.76 woo on/uL 3.80-5 .10 normal Not Available [address], [address], 11/09/2020 14:29:50 11/06/19 21 11/09/2020 CBC w/ auto diff hemoglobin 14.6 g/dL 11.7-1 5.5 normal Not Available [address], [address], 11/09/2020 14:29:50 11/06/19 21 11/09/2020 CBC w/ auto diff hematocrit 43.3 % 35.0-4 5.0 normal Not Available [address], [address], 11/09/2020 14:29:50 11/06/19 21 11/09/2020 CBC w/ auto diff MCV 91.0 fL 80.0-1 00.0 normal Not Available [address], [address], 11/09/2020 14:29:50 11/06/19 21 11/09/2020 CBC w/ auto diff MCH 30.7 pg 27.0-3 3.0 normal Not Available [address], [address], 11/09/2020 14:29:50 11/06/19 21 11/09/2020 CBC w/ auto diff MCHC 33.7 g/dL 32.0-3 6.0 normal Not Available [address], [address], 11/09/2020 14:29:50 11/06/19 21 11/09/2020 CBC w/ auto diff RDW 11.8 % 11.0-1 5.0 normal Not Available [address], [address], 11/09/2020 14:29:50 11/06/19 21 11/09/2020 CBC w/ auto diff platelet count 281 thous and/u L 140-40 0 normal Not Available [address], [address], 11/09/2020 14:29:50 11/06/19 21 11/09/2020 CBC w/ auto diff MPV 11.1 fL 7.5-12 .5 normal Not Available [address], [address], 11/09/2020 14:29:50 11/06/19 21 11/09/2020 CBC w/ auto diff absolute neutrophils 4235 cells /uL 1500-7 800 normal Not Available [address], [address], 11/09/2020 14:29:50 11/06/19 21 11/09/2020 CBC w/ auto diff absolute lymphocytes 2198 cells /uL 850-39 00 normal Not Available [address], [address], 11/09/2020 14:29:50 11/06/19 21 11/09/2020 CBC w/ auto diff absolute monocytes 280 cells /uL 200-95 0 normal Not Available [address], [address], 11/09/2020 14:29:50 11/06/19 21 11/09/2020 CBC w/ auto diff absolute eosinophils 217 cells /uL 15-500 normal Not Available [address], [address], 11/09/2020 14:29:50 11/06/19 21 11/09/2020 CBC w/ auto diff absolute basophils 70 cells /uL 0-200 normal Not Available [address], [address], 11/09/2020 14:29:50 11/06/19 21 11/09/2020 CBC w/ auto diff neutrophils 60.5 % normal Not Available [address], [address], 11/09/2020 14:29:50 11/06/19 21 11/09/2020 CBC w/ auto diff lymphocytes 31.4 % normal Not Available [address], [address], 11/09/2020 14:29:50 11/06/19 21 11/09/2020 CBC w/ auto diff monocytes 4.0 % normal Not Available [address], [address], 11/09/2020 14:29:50 11/06/19 21 11/09/2020 CBC w/ auto diff eosinophils 3.1 % normal Not Available [address], [address], 11/09/2020 14:29:50 11/06/19 21 11/09/2020 CBC w/ auto diff basophils 1.0 % normal Not Available [address], [address], 11/09/2020 14:29:50 11/06/19 21 11/09/2020 eryth rocyt e sedim entat ion rate by sigifredo valentin metho d sed rate by modified piedad 6 mm/h < or = 20 normal Not Available [address], [address], 11/09/2020 14:29:50 11/06/19 21 11/09/2020 CMP, serum or plasm a glucose 86 mg/dL 65-99 normal Fasti ng refer ence inter zoltan Not Available [address], [address], 11/09/2020 14:29:49 11/06/19 21 11/09/2020 CMP, serum or plasm a urea nitrogen (BUN) 13 mg/dL 7-25 normal Not Available [address], [address], 11/09/2020 14:29:49 11/06/1911/09/2020 CMP, serum or plasm a creatinine 0.79 mg/dL 0.50-1 .10 normal Not Available [address], [address], 11/09/2020 14:29:49 11/06/19 21 11/09/2020 CMP, serum or plasm a eGFR non-afr. armenian 96 mL/mi n/1.7 3m2 > or = 60 normal Not Available [address], [address], 11/09/2020 14:29:49 11/06/1911/09/2020 CMP, serum or plasm a eGFR 112 mL/mi n/1.7 3m2 > or = 60 normal Not Available [address], [address], 11/09/2020 14:29:49 11/06/1911/09/2020 CMP, serum or plasm a BUN/creatini ne ratio not applic able (calc ) 6-22 Not Available [address], [address], 11/09/2020 14:29:49 11/06/1911/09/2020 CMP, serum or plasm a sodium 141 mmol/ L 135-14 6 normal Not Available [address], [address], 11/09/2020 14:29:49 11/06/1911/09/2020 CMP, serum or plasm a potassium 3.9 mmol/ L 3.5-5. 3 normal Not Available [address], [address], 11/09/2020 14:29:49 11/06/19 21 11/09/2020 CMP, serum or plasm a chloride 103 mmol/ L 98-110 normal Not Available [address], [address], 11/09/2020 14:29:49 11/06/19 21 11/09/2020 CMP, serum or plasm a carbon dioxide 30 mmol/ L 20-32 normal Not Available [address], [address], 11/09/2020 14:29:49 11/06/19 21 11/09/2020 CMP, serum or plasm a calcium 9.1 mg/dL 8.6-10 .2 normal Not Available [address], [address], 11/09/2020 14:29:49 11/06/19 21 11/09/2020 CMP, serum or plasm a protein, total 6.7 g/dL 6.1-8. 1 normal Not Available [address], [address], 11/09/2020 14:29:49 11/06/19 21 11/09/2020 CMP, serum or plasm a albumin 4.2 g/dL 3.6-5. 1 normal Not Available [address], [address], 11/09/2020 14:29:49 11/06/19 21 11/09/2020 CMP, serum or plasm a globulin 2.5 g/dL_ (calc ) 1.9-3. 7 normal Not Available [address], [address], 11/09/2020 14:29:49 11/06/19 21 11/09/2020 CMP, serum or plasm a albumin/glob ulin ratio 1.7 (calc ) 1.0-2. 5 normal Not Available [address] [address] [place], [address], 11/09/2020 14:29:49 11/06/19 21 11/09/2020 CMP, serum or plasm a bilirubin, total 0.4 mg/dL 0.2-1. 2 normal Not Available [address] [address] [place], [address], 11/09/2020 14:29:49 11/06/19 21 11/09/2020 CMP, serum or plasm a alkaline phosphatase 74 U/L 31-125 normal Not Available [facility] [address] [address] [place], [address], 11/09/2020 14:29:49 11/06/19 21 11/09/2020 CMP, serum or plasm a AST 11 U/L 10-30 normal Not Available [address] [address] [place], [address], 11/09/2020 14:29:49 11/06/19 21 11/09/2020 CMP, serum or plasm a ALT 9 U/L 6-29 normal Not Available [address] [address] [place], [address], 11/09/2020 14:29:49 11/11/19 21 11/09/2020 US, thyro id No observ ation record ed. MIGRATION. [facility] [address], [place], [address], 09/28/2022 21:50:25 03/07/20 21 03/07/2021 CT, neck, soft tissu e, w/o contr ast No observ ation record ed. [id number] [facility] (Imaging) [address], [place], [address], 09/28/2022 21:50:25 Result Notes None recorded. Problems Name Problem SNOMED Code Status Onset Date Resolution Date Notes Provider Name and Address Organization Details Recorded Time Tobacco user 589837832 Active 021 Not Available [facility] 3 21:49:23 Multiple joint pain 47565141 Active 021 Not Available [facility] 3 21:49:24 Goiter 7725702 Active 021 Not Available [facility] 3 21:49:24 Obese 456337143 Active 021 Not Available [facility] 3 21:49:24 Anxiety 63850442 Active 021 Not Available [facility] 3 21:49:24 Problem Notes None recorded. Procedures Surgical History Date Name Laterality Status Provider Name and Address Organization Details Recorded Time 07/31/19 09 cholecystectomy completed Not Available [facility] 07/2022 21:48:33 Imaging Results Imaging Date Name Status LastModified by Organiz ation Details LastModified Time 11/09/2020 US, thyroid completed [id number] 026 [facility] [address] [facility] [address], [place], [address], 09/28/2022 21:50:25 03/07/2021 CT, neck, soft tissue, w/o contrast completed [id number] [address] [place] [address] (Imaging) [address] [facility] [address], [place], [address], 09/28/2022 21:50:25 Procedure Notes None recorded. Medical Equipment None Reported. Allergies Allergen ID Allergen Name Allergen Category Reaction Reaction Severity Criticality Documentation Date Start Date Code Code System Note Provider Name and Address Organization Details Recorded Time 20875 Substance with sulfonami de structure and antibacte rial mechanism of action (substanc e) medicatio n anaphylax is Not available Not available 09/28/20222013 77962 8003 SNOMED Not Available [facility] 3 21:50:20 59353 aspirin medicatio n Not available Not available Not available 09/28/2022 1191 RxNorm anaph alact ic Not Available [facility] 3 21:50:20 Medications Name Sig Start Date Stop Date Status Note LastModified by Organization Details LastModified Time azithromyci n 250 mg tablet ZPK 11/05 completed Not Available Not Available Not Available ibuprofen 800 mg tablet TAKE 1 TABLET BY MOUTH THREE TIMES DAILY NEEDED FOR PAIN 11/08 completed Not Available Not Available Not Available ondansetron HCl 4 mg tablet 11/05 completed Not Available Not Available Not Available prednisone 20 mg tablet 11/05 completed Not Available Not Available Not Available meclizine 25 mg tablet TAKE 1 TABLET BY MOUTH TWICE DAILY NEEDED FOR DIZZINESS OR VERTIGO 11/08 completed Not Available Not Available Not Available benzonatate 100 mg capsule 11/05 completed Not Available Not Available Not Available cephalexin 500 mg capsule TAKE 1 CAPSULE BY MOUTH EVERY 6 HOURS FOR 1 WEEK 08/25 completed Not Available Not Available Not Available ergocalcife rol (vitamin D2) 1,250 mcg (50,000 unit) capsule TAKE 1 CAPSULE BY MOUTH EVERY WEEK active Not Available Not Available No t Available methylpredn isolone 4 mg tablets in a dose pack FOLLOW PACKAGE DIRECTION S 08/25 completed Not Available Not Available Not Available fluticasone propionate 50 mcg/actuati on nasal spray,suspe nsion SPRAY ONCE IN EACH NOSTRIL TWICE DAILY DIRECTED 11/08 completed Not Available Not Available Not Available loratadine 10 mg tablet TAKE 1 TABLET BY MOUTH DAILY 11/08 completed Not Available Not Available Not Available escitalopra m 10 mg tablet TAKE 1 TABLET BY MOUTH EVERY DAY active Not Available Not Available No t Available Saxenda 3 mg/0.5 mL (18 mg/3 mL) subcutaneou s pen injector active Not Available Not Available Not Available BD Teresa 2nd Gen Pen Needle 32 gauge x active Not Available Not Available Not Available Ubrelvy 100 mg tablet TAKE 1 TABLET BY MOUTH AT MIGRAINE ONSET, MAY REPEAT IN 2 HOURS IF NEEDED 11/08 completed Not Available Not Available Not Available Vitals Date Recorded Body mass index (BMI) Body mass index (BMI) Body height Body height Body height Oxygen saturation Oxygen saturation in Arterial blood by Pulse oximetry Oxygen saturation Oxygen saturation in Arterial blood by Pulse oximetry Heart rate Heart rate Respiratory rate Body temperature Body temperature Body weight Body weight Systolic blood pressure Diastolic blood pressure Systolic blood pressure Diastolic blood pressure Systolic blood pressure Diastolic blood pressure Provider Name and Address Organization Details Last Updated DateTime 3 39.9 kg/m2 39.9 kg/m2 160.02 cm 160.02 cm 160.02 cm 98 % 98 % 98 % 98 % 80 /min 80 /min 16 /min 97.3 [degF] 97.9 [degF] 260670. 28 g 259762. 98 g 141 mm[Hg] 82 mm[Hg] 122 mm[Hg] 88 mm[Hg] 122 mm[Hg] 88 mm[Hg] Not Available [facility] 3 21:49:17 Date Recorded Body weight Body mass index (BMI) Body height Body temperature Heart rate Respiratory rate Oxygen saturation Oxygen saturation in Arterial blood by Pulse oximetry Pain severity - 0-10 verbal numeric rating [Score] - Reported Systolic blood pressure Diastolic blood pressure Provider Name and Address Organization Details Last Updated DateTime 3 04305.8 3 g 38.9 kg/m2 160.02 cm 98.3 [degF] 75.99 /min 16 /min 98 % 98 % 0 146 mm[Hg] 86 mm[Hg] Nikole Booker RN [employer] 3 14:12:54 Social History Question Answer Notes LastModified by Organizat ion Details LastModified Time Tobacco Smoking Status Current Every Day Smoker Nikole Booker RN [facility], [employer] 11/08/2022 14:15:08 Do You Have An Advance Directive? No Information not available 11/08/2022 What Is Your Level Of Alcohol Consumption? Occasional MIGRATION. [id number] Information not available 09/28/2022 Is Blood Transfusion Acceptable In An Emergency? Yes Information not available 11/08/2022 What Is Your Level Of Caffeine Consumption? Moderate MIGRATION. 20985 Information not available 09/28/2022 How Much Tobacco Do You Chew? None MIGRATION. 24927 Information not available 09/28/2022 What Is Your Code Status? Full Code Information not available 11/08/2022 In The 14 Days Before Symptom Onset, Have You Had Close Contact With A Laboratory-gonzaloi rmed COVID-19 While That Case Was Ill? No MIGRATION. 01287 Information not available 09/28/2022 In The 14 Days Before Symptom Onset, Have You Had Close Contact With A Person Who Is Under Investigation For COVID-19 While That Person Was Ill? No [id number] Information not available 09/28/2022 Are You Currently Employed? Yes Information not available 11/08/2022 What Type Of Diet Are You Following? REGULAR [id number] Information not available 09/28/2022 Do You Or Have You Ever Used E-cigarettes Or Vape? Never Used Electronic Cigarettes [id number] Information not available 09/28/2022 What Is The Highest Grade Or Level Of School You Have Completed Or The Highest Degree You Have Received? [id number] Information not available 11/08/2022 What Is Your Occupation? RN Information not available 11/08/2022 Have There Been Any Changes To Your Family Or Social Situation? No Information not available 11/08/2022 Do You Use Insect Repellent Routinely? Yes Information not available 11/08/2022 Where Do You Live? SingleLevelHouse Information not available 11/08/2022 Do You Have A Medical Power Of Lead Press Operator? No Information not available 11/08/2022 How Many Children Do You Have? 3 Information not available 11/08/2022 Do You Have Any Pets? Yes Information not available 11/08/2022 Do You Use Protection During Sex? No Information not available 11/08/2022 What Is Your Relationship Status? Single Information not available 11/08/2022 Do You Use Your Seat Belt Or Car Seat Routinely? Yes Information not available 11/08/2022 Are You Sexually Active? Yes Information not available 11/08/2022 Do You Have Smoke And Carbon Monoxide Detectors In Your Home? Yes Information not available 11/08/2022 At What Age Did You Start Smoking Tobacco? 14 Information not available 11/08/2022 Are You Passively Exposed To Smoke? No [id number] Information not available 09/28/2022 Do You Or Have You Ever Used Smokeless Tobacco? Former Smokeless Tobacco User MIGRATION.53590 77527 Information not available 09/28/2022 Are There Any Smokers In Your House? Yes Information not available 11/08/2022 How Much Tobacco Do You Smoke? 2 PPW Information not available 11/08/2022 Do You Participate In Social Media? Yes Information not available 11/08/2022 Do You Feel Stressed (tense, Restless, Nervous, Or Anxious, Or Unable To Sleep At Night)? [id number] Information not available 11/08/2022 Do You Use Any Illicit Or Recreational Drugs? No Information not available 11/08/2022 Do You Use Sunscreen Routinely? Yes Information not available 11/08/2022 How Many Years Have You Smoked Tobacco? 18 Information not available 11/08/2022 Have You Recently Traveled Abroad? No Information not available 11/08/2022 Sex: Female Functional Status Question Answer Note LastModified by Organizat ion Details LastModified Time What is your exercise level? None [id number] Information not available 09/28/2022 Mental Status None recorded. Family History Relationship Description Onset Age of this Age Resolved Age Notes LastModified by Organization Details LastModified Time Mother Lupus erythematosu s [id number] Not available 09/28/2022 21:48:34 Medical History Condition Response ANXIETY DISORDER Y Gynecological History Statement/Question Response Date of Last Colonoscopy Most Recent Bone Density Date of LMP Sexually Active? Y STIs/STDs N Current Control Method Most Recent Mammogram Breast Problems none Discharge none Obstetrics History GPAL:G 0 P 0 0 0 0 Past Encounters Encounter ID Performer Location Encounter Start Date Encounter Closed Date Diagnosis/Indication Diagnosis SNOMED-CT Code Diagnosis ICD10 Code Diagnosis Note [id number] [facility] [address] [place] [phone] 11/05/2020 00:00:00 11/05/2020 12:21:48 [id number] [facility] [address] [place] [id number] 1 02/18/2021 00:00:00 02/18/2021 10:35:44 [id number] [facility] [address] [place] [address] 08/25/2021 00:00:00 08/25/2021 09:40:54 [id number] Nikole Ang NP [facility] [address] [place] [id number] 1 11/08/2022 13:57:57 11/08/2022 15:00:07 Adult health examination 767699908 Z00.00 Encouraged well balanced meals, active lifestyle, and routine vision and dental appts. Anemia screening 6380489 07 Z13.0 Diabetes m ellitus screening 168313861 Z13.1 Thyroid di sorder screening 932556026 Z13.29 Hyperlipid emia screening 597481287 Z13.220 Anxiety 45817299 F41.9 escitalopr am 10 mg, 1/2 tab po daily for 8 days, then up to 1 tab daily. Tobacco user 804504604 Z 72.0 cessation encouraged and recommende d. Obese 063815880 E66.9 Diet and exercise. Health Concerns Section Related Observation LastModified by Organization Detai ls LastModified Time None Recorded Concern Status LastModified by Organization Details LastModified Time None Recorded Advance Directives Directive N: Payers Encounter Date Sequence Insurance Name Policy Number Policy Bess Covered Member ID Bess Member ID Guarantor Name 11/08/2022 1 [employer] ([employer]) [id number] Milena Jay [id number] Milena Jay Notes Date Note Type Note Provider Name and Address Organization Details Recorded Time 11/08/2022 text/html Here for monica s visit. States she is doing well and loving her new home.Labs due.Vision- just had exam and awaiting glasses.Dental- 6 mo ago. Wants to lose weight- interested in wegovy. Nikole Ang NP [address] [facility], [facility] [address], [place], [address], [facility] [employer] 11/08/2022 14:58:21 OBGyn Episode No OBEpisode recorded.
--- OUTSIDE RECORDS SUMMARY | 2024-09-03 12:37 | XMS_ITS | Continuity of Care Document ---
Author Organization [facility] Address [address] [place] [address] Phone Care Team Providers Care Well Logger Name Role Phone Unavailable Unavailable Unavailable Advance Directives Directive Yes / No Effective Date File Name No Information Encounters Encounter Description Practice Location Reason(s) For Visit Diagnoses Date Provider Providers Copied on Encounter [facility], [address] [facility], [place], [place], [id number], tel:[phone] [facility] No Information [id number] No Information Referring Provider: DENYS MCKEON, [address] [place] [address],[place], [address]. tel:[phone] Family History Family Member Type Diagnosis Age At Onset No Information Payers Payer name Insurance type Covered democrat ID Authoriza titerence(s) [facility] [place] [id number] [place] [id number] Social History Type Description Quantity Date Captured Comments Sex Female Smoking Status No Information Chief Complaint And Reason For Visit No Information History Of Present Illness Encounter Date Complaint History Of Prese nt Illness No Information Instructions Date Instruction Additional Infor mation No Information Assessments Type Assessment Date No Information
--- OUTSIDE RECORDS SUMMARY | 2024-09-03 12:37 | XMS_ITS | Continuity of Care Document ---
Author Organization [facility] Address [address] [place] [address] Phone Care Team Providers Care Turbine Inspector Name Role Phone Harman Carver MD Unavailable Unavailable Allergies, Adverse Reactions, Alerts Substance Reaction Status Criticality Sulfa (Sulfonamide Antibiotics) Active No Information aspirin Active No Information Medications Medication Instructions Dosage Effective Dates (start - stop) Status Comments Paxil 20 mg tablet take 2 tablet by oral route every day 40 MG - Active Xanax 0.5 mg tablet take 1 tablet by oral route every 4 - 6 hours as needed 0.5 MG - Active avoid driving or operate machines Neurontin 100 mg capsule take 1 Capsule by oral route 3 times every day 100 MG - Active avoid driving or operate machines Procedures Procedure Date PREV VISIT, EST, AGE [...] Diagnoses Date Provider Providers Copied on Encounter [facility], [facility] [employer] [facility] [place], [id number], [place] tel:[phone] [facility] No Information 7 Mehul Hammer. [address], [address], [place], [place], [address] , [place]. [phone] PREV VISIT, EST, AGE 18-39 [facility], [address], [place], [place], [address], [place] tel:[phone] [facility] Medicine PHysical (chief complaint) Encounter for general adult medical exam w abnormal findingsParesthe brittany of skinGeneralized anxiety disorderFatigue 7 Mehul Hammer. [address], [address], [place], [place], [address] , [place]. [phone] Referring Provider: Larry And[address], [place], [place], [address]. tel:[phone] PREV VISIT, EST, AGE 18-39 [facility], [address], [place], [place], [address], [place] tel:[phone] [facility] Physical (chief complaint) Encntr for general adult medical exam w/o abnormal findings 6 Mehul Hammer. [address], [address], [place], [place], [address] , [place]. [phone] Referring Provider: Larry Andrade [address], [place], [place], [address]. tel:[phone] OFFICE/OUTPA TIENT VISIT, EST [facility], [address], [place], [place], [address], [place] tel:[phone] [facility] numbness1 (chief complaint)Anx iety1 (chief complaint)fat igue1 (chief complaint) FatigueParesthes ia of skinGeneralized anxiety disorder 0- 5 Mehul Hammer. [address], [address], [place], [place], [address] , [place]. [phone] Referring Provider: Larry And[address], [place], [place], [address]. tel:[phone] OFFICE/OUTPA TIENT VISIT, [facility], [address], [place], [place], [address], [place] tel:[phone] [facility] anxieyt (chief complaint)rosendo ght loss (chief complaint) Dietary surveillance and counselingLoss of weightGeneralize d anxiety disorder 5 Mehul Hammer. [address], [address], [place], [place], [address] , [place]. tel:[phone] Referring Provider: Harman Carver, [address], [place], [place], [address]. tel:[phone] OFFICE/OUTPA TIENT VISIT, [facility], [address], [place], [place], [address], [place] tel:[phone] [facility] obesity (chief complaint)tob acco (chief complaint)Anx iety (chief complaint) Dietary surveillance and counselingGenera lized anxiety disorderTobacco abuseBody Mass Index 34.0-34.9, adult 5 Mehul Hammer. [address], [address], [place], [place], [address] , [place]. tel:[phone] Referring Provider: Larry And[address], [place], [place], [address]. tel:[phone] OFFICE/OUTPA TIENT VISIT, [facility], [address], [place], [place], [address], [place] tel:[phone] [facility] anxiety (chief complaint)fin nicola numbness (chief complaint) Dietary surveillance and counselingGenera lized anxiety disorderDisturba nce of skin sensationCarpal Tunnel SyndromeBody Mass Index 34.0-34.9, adult 5 Mehul Hammer. [address], [address], [place], [place], [address] , [place]. tel:[phone] Referring Provider: Larry Andrade [address], [place], [place], [address]. tel:[phone] OFFICE/OUTPA TIENT VISIT, [facility], [address], [place], [place], [address], [place] tel:[phone] [facility] obesity (chief complaint)diz ziness (chief complaint)anx iety (chief complaint) Dietary surveillance and counselingGenera lized anxiety disorderDizzines sBody Mass Index 34.0-34.9, adultSedative, hypnotic or anxiolytic dependence, unspecified 5 Mehul Hammer. [address], [address], [place], [place], [address] , [place]. tel:[phone] Referring Provider: Harman Carver, [address], [place], [place], [address]. tel:[phone] OFFICE/OUTPA TIENT VISIT, [facility], [address], [place], [place], [address], [place] tel:[phone] [facility] anxiety (chief complaint)Obe sity (chief complaint)wri st pain (chief complaint) Dietary surveillance and counselingDepres sionPain in joint involving forearmObesity 5 Mehul Hammer. [address], [place], [place], [address] , [place]. tel:[phone] Referring Provider: Harman Carver, [address], [place], [place], [address]. tel:[phone] OFFICE/OUTPA TIENT VISIT, [facility], [address], [place], [place], [address], [place] tel:[phone] [facility] immunization (chief complaint)TB screening (chief complaint) HypothyroidismDi etary surveillance and counselingScreen ing examination for rubellaScreening examination for pulmonary tuberculosis 5 Mehul Hammer. [address], [place], [place], [address] , [place]. tel:[phone] Referring Provider: Larry Andrade [address], [place], [place], [address]. tel:[phone] OFFICE/OUTPA TIENT VISIT, [facility], [address], [place], [place], [address], [place] tel:[phone] [facility] anxiety (chief complaint)hyp othyroidism (chief complaint)TG (chief complaint) Dietary surveillance and counselingHypoth yroidismOther and unspecified hyperlipidemiaGe neralized anxiety disorder 5 Mehul Hammer. [address] [place], [place], [address] , . tel:[phone] Referring Provider: Harman Carver, [address], [place], [address]. tel:[phone] PREV VISIT, NEW, AGE 18-39 [facility], [address] [place], [address], tel:[phone] [facility] Physical (chief complaint) Dietary surveillance and counselingRoutin e Medical ExamRoutine Medical Exam 5 Mehul Hammer. [address] [place], [place], [address] , [place]. tel:[phone] Family History Family Member Type Diagnosis Age At Onset Sister Problem (finding) heroin Mother Problem (finding) Hypertension Father Problem (finding) COPD Sister Problem (finding) Alive and well Mother Problem (finding) hypothyroidism Mother Problem (finding) Diabetes mellitus Payers Payer name Insurance type Covered libertarian ID Authoriza tion(s) No Information Social History [...] and also morning nausea Pt is seeing RECEIVING CLERK now. Pt states that she is doing [...] Instructions Date Instruction Additional Infor mation Prescribed Activity and Exercise Education Related to [...] Related to Dietary Surveillance and Counseling Prescribed activity/ exercise education Related to Dietary surveillance and counseling Special diet education Related t o Dietary surveillance and counseling Prescribed activity/ exercise education Related to Dietary surveillance and counseling Special diet education Related t o Dietary surveillance and counseling Physical activity counseling [...] caloric intake Related to Dietary surveillance counseling Assessments Type Assessment Date No Information
[2024-09-03 13:12] VITALS: BP 132/89; PULSE 79; RESP 18; TEMP 36.1; O2SAT 99
[2024-09-03 13:30] LABS: EDCOVIDSCREEN Positive (Negative)
[2024-09-03 13:31] LABS: EDINFLUASCREEN Negative (Negative); EDINFLUBSCREEN Negative (Negative)
--- NOTE | 2024-09-03 13:52 | ED_ITS ---
HPI - URI/Sore Throat General Chief Complaint: Upper Respiratory Infection Stated Complaint: flu like symptoms Time Seen by Provider: 09/03/24 13:52 Source: patient, RN notes reviewed and old records reviewed Mode of arrival: ambulatory Limitations: no limitations History of Present Illness HPI Narrative: patient presents with complaints of flu-like symptoms that began early yesterday, got much worse by last night. She reports that body aches are her most bothersome symptom. She denies any shortness of breath. She has been taking [id number]-lar-[id number] medications with moderate relief. Says that she is much more tired than usual. She is accompanied by her son who is also having symptoms. She is not in any distress Related Data Home Medications ?Medication ?Instructions ?Recorded ?Confirmed ?Last Taken ?Type bupropion HCl 150 mg 24 hr tablet, mg PO 09/03/24 Unknown History extended release Allergies Allergy/AdvReac Type Severity Reaction Status Date / Time aspirin Allergy Severe Anaphylactic Verified 09/03/24 13:43 Shock Sulfa (Sulfonamide Allergy Severe Anaphylactic Verified 09/03/24 13:43 Antibiotics) Shock sulfamethoxazole Allergy Severe Anaphylactic Verified 09/03/24 13:43 Shock Review of Systems Review of Systems: All systems reviewed & are unremarkable except as noted in HPI and below Constitutional: Constitutional: Reports body ache(s), Reports chills, Reports fever(s), Reports headache(s) and Reports lethargy ENT: Reports system reviewed and no additional complaints, except as documented, Reports nasal congestion and Reports nasal discharge Cardiovascular: Cardiovascular: Reports no additional cardiovascular complaints Respiratory: Respiratory: Reports cough Gastrointestinal: Gastrointestinal: Reports no additional gastrointestinal complaints [facility] Past Medical History Medical History (Updated 09/03/24 @ 14:08 by Michelle Akers APRN) Obese Ex-smoker for less than 1 year Asthma Childhood delivery delivered Surgical History Surgical History History of tubal ligation H/O LEEP History of endometrial ablation History of tonsillectomy History of cholecystectomy H/O section X3 Family History Family History Mother Hypertension Family history of elevated blood lipids Family history of diabetes mellitus in first degree relative Family history of pulmonary embolism Grandparent Family history of malignant neoplasm of breast, Onset Age: 92 Family history of coronary artery disease, Onset Age: 57 Diabetes mellitus Social History Social History Smoking status: Former smoker Tobacco type: cigarettes and e-cigarettes/vaping Second hand tobacco smoke exposure: Yes (Spouse) Alcohol intake: current Substance use: never Substance use type: does not use Living arrangements: with family Occupation/Education: occupation Gender identity (if verbalized by the patient): Female Sexual Orientation (if Verbalized by the Patient): Straight or Heterosexual Comments At the time of my signature, I reviewed and agree with the nursing past medical, surgical, social, and family history. There is no relevant family hist ory pertinent to the patient complaint. Exam Const: General: cooperative, no acute distress, alert and awake Orientation/consciousness: oriented to person, oriented to place and oriented to time HENMT: Head: normal to inspection Resp: Effort & Inspection: normal respiratory effort and able to speak in complete sentences Auscultation: clear to auscultation bilaterally, no crackles, no rales, no rhonchi and no wheezes Cardio: Palpation: normal PMI Rate: regular rate Rhythm: regular rhythm Heart sounds: S1 normal heart sound present and S2 normal heart sound present Neuro: General: oriented to person, oriented to place and oriented to time Cranial nerves: Yes CN's II-XII intact bilaterally Psych: Appearance: grossly normal Thought process: Normal thought process present Insight: Good insight present (Psych) Judgement: Good judgement present (Psych) Course Course Level of Care: Express Care Visit Vital Signs Vital signs: Vital Signs Temperature 97.0 F L 09/03/24 13:12 Pulse Rate 79 09/03/24 13:12 Respiratory Rate 18 09/03/24 13:12 Blood Pressure 132/89 09/03/24 13:12 Pulse Oximetry 99 09/03/24 13:12 Oxygen Delivery Room Air 09/03/24 13:12 Temperature 97.0 F L 09/03/24 13:12 Pulse Rate 79 09/03/24 13:12 Respiratory Rate 18 09/03/24 13:12 Blood Pressure 132/89 09/03/24 13:12 Pulse Oximetry 99 09/03/24 13:12 Oxygen Delivery Room Air 09/03/24 13:12 Reviewed MDM - URI/Sore Throat MDM Narrative Medical decision making narrative: negative influenza, positive COVID. Patient with reassuring physical exam, no distress. Supportive care measures discussed. Discharge instructions reviewed with patient, as well as provided in writing per nursing staff. The instructions also include specific and strict return/GO TO THE ER as well as f/u information. All questions have been answered, and the patient deny any further questions with discharge and discharge plan. Some parts of this dictation were generated by voice recognition software and may contain typographical and/or grammatical inaccuracies. Differential Diagnosis Differential diagnosis: Likely upper respiratory infection, viral infection and influenza Medical Records Attestation: I reviewed the patient's medical records. Lab Data Attestation: I reviewed the patient's lab results. Labs: Lab Results 09/03/24 Range/Units 13:27 POC Influenza A Ag Negative (Negative) POC Influenza B Ag Negative (Negative) POC SARS CoV-2 Ag Positive (Negative) Discharge Plan Discharge Clinical Impression: COVID-19 Patient Disposition: Home, Self-Care Condition: Stable Instructions: Antibiotic Form, How to Recover from COVID-19 at Home (ED) Additional Instructions: follow-up with primary care provider. Emergency department for new or worse symptoms. Patient Language: Algerian Prescriptions: No Action bupropion HCl 150 mg tablet extended release 24 hr PO Follow-up/Referrals: PHYSICIAN,NEUROLOGY PHYSICIAN ASSISTANT [Primary Care Provider] - Stand Alone Forms: Work/School Release IP Time of Disposition: 14:08
== END 2024-09-03 14:10 | disposition home or self-care (01) ==
PROVIDERS: Emergency Provider Nurse Practitioner Family
DX: U07.1 COVID-19 (principal); Z87.891 Personal history of nicotine dependence; E66.9 Obesity, unspecified; Z68.36 Body mass index [BMI] 36.0-36.9, adult
CPT/HCPCS: 87426; 87804; 99212; G0463

== ENCOUNTER 2024-12-31 15:34 | Outpatient (CLI) | payer OTHER, SELFPAY ==
--- NOTE | ~2024-12-31 | MM_ITS ---
EXAMINATION: MM screening jonathan BI w kash HISTORY: Screening mammogram TECHNIQUE: Craniocaudal and mediolateral oblique 3-D tomosynthesis images were obtained and synthetic 2-D images were generated. Bilateral rotated lateral CC views. CAD analysis was submitted and interp reted. COMPARISON: Baseline BREAST PARENCHYMAL COMPOSITION: The breasts are almost entirely fatty. FINDINGS: There is no evidence of suspicious mass, calcification, or architectural distortion to sug gest malignancy in either breast. There has been no suspicious interval change. IMPRESSION: 1. No mammographic evidence of malignancy. 2. Recommend routine screening mammography in one year. BI-RADS Category 1: Negative Reviewed, dictated and finalized at location B.
== END 2024-12-31 15:35 | disposition home or self-care (01) ==
LOC: MICIMG 15:35
PROVIDERS: PCP Nurse Practitioner; Visit Provider Nurse Practitioner
DX: Z12.31 Encounter for screening mammogram for malignant neoplasm of breast (principal)
CPT/HCPCS: 77063; 77067